=== PATIENT | male | born 1960 | race Caucasian/White ===

== ENCOUNTER 2016-04-29 13:44 | Emergency (ER) | payer MEDICAID, OTHER ==
[~2016-04-29 13:44] MED LIST: ATOR40TA49 PO; COZA100T PO; GLUCTAB PO; HYDR-2768 PO; HYDR-3533 PO; LEVEMIR SC; NOVO70IN2 SC; ZOFR4TAB3 SL
[2016-04-29 14:01] VITALS: BP 175/111; PULSE 99; RESP 20; TEMP 98.8; O2SAT 96
--- NOTE | 2016-04-29 14:23 | PD ---
HPI Chief Complaint: Skin Problem Time Seen by Provider: 14:18 Travel History International Travel<30 days: No Contact w/Intl Traveler<30days: No Traveled to known affect area: No History of Present Illness HPI 55-year-old male with history of atopic dermatitis, diabetes, presents to the ER today because he states that 3 days ago he was moving some old boxes, started getting itchiness in his left hand fingers, and over the last few days, the area is becoming more swollen, irritated, with areas of dark discoloration. He denies any shortness of breath, chest discomfort, or any other rashes. He denies any fevers. He states that the last times of the like this happened was when he had poison rona which she states he is allergic to. Modifying Factors: None Associated Signs & Symptoms: Left hand and finger swelling, irritation, dark discoloration Risk Factors: History of allergic reaction to poison rona and other substances PFSH Past Medical History Blood Disorders: No Cancer: No Cardiovascular Problems: No High Cholesterol: Yes Chemotherapy: No Coronary Artery Disease: Yes Diabetes: Yes Diminished Hearing: No Endocrine: No Genitourinary: No Hypertension: Yes Immune Disorder: No Musculoskeletal: No Neurologic: No Psychiatric: No Respiratory: No Radiation Therapy: No Past Surgical History AICD: No Joint Replacement: No Pacemaker: No Social History Alcohol Use: No Tobacco Use: No Substance Use: No Allergies-Medications (Allergen,Severity, Reaction): Coded Allergies: No Known Allergies (Verified , 04/29/16) Reported Meds & Prescriptions Reported Meds & Active Scripts Active Zofran ODT (Ondansetron HCl) 4 Mg Tab 4 Mg SL Q6H PRN FOR NAUSEA/VOMITING Lortab 5 mg/325 mg (Hydrocodone/Acetaminophen 5 mg/325 mg) 1 Tab 1 Tab PO Q6H PRN Novolin 70/30 (Insulin Isophane & Reg (Human)) 70 /30 Inj 25 30 SC BID 30 Days Reported Levemir (Insulin Detemir) Inj 1 SC Lipitor 40 Mg Tab (Atorvastatin Calcium) 40 Mg Tab 40 Mg PO HS Metformin (Metformin HCl) 500 Mg Tab 500 Mg PO BIDPC Hctz (Hydrochlorothiazide) 25 Mg Tab 25 Mg PO DAILY Cozaar (Losartan Potassium) 100 Mg Tab 100 Mg PO DAILY Review of Systems Except as stated in HPI: all other systems reviewed are Neg Physical Exam Narrative GENERAL: Middle age white male patient who is well-developed, awake, alert, oriented 3, not in acute distress. SKIN: Warm and dry. HEAD: Atraumatic. Normocephalic. EYES: Pupils equal and round. No scleral icterus. No injection or drainage. ENT: No nasal bleeding or discharge. Mucous membranes pink and moist. NECK: Trachea midline. No JVD. CARDIOVASCULAR: Regular rate and rhythm. No murmur appreciated. RESPIRATORY: No accessory muscle use. Clear to auscultation. Breath sounds equal bilaterally. GASTROINTESTINAL: Abdomen soft, non-tender, nondistended. Hepatic and splenic margins not palpable. MUSCULOSKELETAL: No obvious deformities. No clubbing. No cyanosis. No edema. NEUROLOGICAL: Awake and alert. No obvious cranial nerve deficits. Motor grossly within normal limits. Normal speech. PSYCHIATRIC: Appropriate mood and affect; insight and judgment normal. Left hand: There is notable dense fasciculation and edema over the base of the second, third, and fourth digits with no tenderness. Nontender range of motion. There are some spots that has some underlying hemorrhage below the skin surface. No tenderness on flexion and extension. Data Data Last Documented VS Vital Signs Date Time Temp Pulse Resp B/P Pulse Ox O2 Delivery O2 Flow Rate FiO2 04/29/16 14:01 98.8 99 20 175/111 96 Orders Basic Metabolic Panel (Bmp) (04/29/16 14:18) Complete Blood Count With Diff (04/29/16 14:18) Ecg Monitoring (04/29/16 14:18) Iv Access Insert/Monitor (04/29/16 14:18) Oximetry (04/29/16 14:18) Diphenhydramine Inj (Benadryl Inj) (04/29/16 14:30) Methylprednisolone So Succ Inj (Solumedr (04/29/16 14:30) Sodium Chloride 0.9% Flush (Ns Flush) (04/29/16 14:30) Blood Culture (04/29/16 14:18) MDM Medical Decision Making Medical Screen Exam Complete: Yes Emergency Medical Condition: Yes Medical Record Reviewed: Yes Differential Diagnosis Allergic reaction versus cellulitis versus chemical irritant exposure Narrative Course Patient states that he had taken Benadryl and is not itching as much now. Lab work was ordered for the patient for further evaluation for leukocytosis. IV Solu-Medrol and Benadryl was ordered for the patient. However, after a few tries at getting lab work and IV, we were unsuccessful at getting an IV and the patient refused to get anything IV at this point. He also refuses further lab work. A metabolic panel was able to be done. However, the patient is refusing to stay for results. At this point, he states that he wants treatment for his allergic reaction and wants to leave. I have stated to him that workup is incomplete and that we cannot be sure that this is just an allergic reaction and not infection. Patient states understanding but refuses to get further workup. I have talked to the patient regarding possible risk of underlying infection and sepsis. Patient states understanding, and understands the risk of possible worsening of infection including loss of fingers. I will give the patient treatment for the localized allergic reaction and antibiotics for possible underlying superinfection. He should return for any worsening in swelling, pain, any fevers, and new symptoms as needed. He should follow-up closely with primary care physician. The wrists were discussed with the patient and he states he does not want further treatment and he will be owing home with close follow-up to primary care physician and should get immediate medications to be started today. Diagnosis Primary Impression: Cellulitis, finger Med/Other Pt SpecificInfo: Prescription(s) given Scripts Prednisone 50 Mg Tab50 Mg PO DAILY #5 TAB Ref 0 Prov:Harley Pitts MD 04/29/16 Diphenhydramine (Benadryl Allergy)25 Mg Tab25 Mg PO Q6H PRN (ALLERGIES) #20 TAB Ref 0 Prov:Harley Pitts MD 04/29/16 Sulfamethoxazole-Trimethoprim (Bactrim DS)800-160 Mg Tab1 Tab PO BID #14 TAB Ref 0 Prov:Harley Pitts MD 04/29/16 Disposition: 01 DISCHARGE HOME Condition: Stable Harley Pitts MD Apr 29, 2016 14:23
[2016-04-29] MEDS ORDERED: SODIUM CHLORIDE 0.9% FLUSH 5 ML FLUSH IVF PRN (14:30)
[2016-04-29] MEDS ORDERED: diphenhydrAMINE HCL 50 MG/ML VIAL IVP ONE (14:30)
[2016-04-29] MEDS ORDERED: methylPREDNISolone SOD SUCC 125 MG/2 ML VIAL IVP ONE (14:30)
[2016-04-29] MEDS ORDERED: BENA25TA3 PO (15:43)
[2016-04-29] MEDS ORDERED: PRED50 PO (15:43)
[2016-04-29] MEDS ORDERED: BACT800T5 PO (15:43)
[2016-04-29] MEDS ORDERED: methylPREDNISolone SOD SUCC 125 MG/2 ML VIAL IM ONE (15:45)
[2016-04-29] MEDS ORDERED: diphenhydrAMINE HCL 50 MG/ML VIAL IM ONE (15:45)
== END 2016-04-29 15:56 | disposition home or self-care (01) ==
LOC: PHED 13:44
DX: L03.012 Cellulitis of left finger (principal); E11.9 Type 2 diabetes mellitus without complications; I10 Essential (primary) hypertension; E78.00 Pure hypercholesterolemia, unspecified; Z79.4 Long term (current) use of insulin
CPT/HCPCS: 99283